=== PATIENT | female | born 1985 | race Hispanic/Latino ===

== ENCOUNTER 2018-12-10 06:44 | Emergency (ER) | payer BC ==
[~2018-12-10] VITALS: Ht 152.4 cm; Wt 87.5 kg
--- OUTSIDE RECORDS SUMMARY | 2018-12-10 06:47 | XMS REPORT ---
[facility] Phone Unavailable Care Team Providers Care Architecture Consultant Name Role Phone COURTNEY GARCIA Unavailable Unavailable Problems This patient has no known problems. Allergies, Adverse Reactions, Alerts This patient has no known allergies or adverse reactions. Medications This patient has no known medications. Encounters Start Date/Time End Date/Time Encounter Type Admission Type Attending [facility] Facility Care Department Encounter ID 2017-05-14 06:35:27 2017-05-14 06:35:27 Outpatient [facility] [id number] 2017-05-14 00:00:00 2017-05-14 00:00:00 Outpatient [facility] [id number] 2017-05-08 09:24:35 2017-05-08 09:24:35 Outpatient [facility] [id number] 2017-05-08 00:00:00 2017-05-08 00:00:00 Outpatient [facility] [id number] 2017-04-25 00:00:00 2017-04-25 00:00:00 Outpatient [facility] [id number] 2017-04-09 08:56:40 2017-04-09 08:56:40 Outpatient [facility] [id number] 2017-04-08 00:00:00 2017-04-08 00:00:00 Outpatient [facility] [id number] 2017-01-17 14:13:21 2017-01-17 14:13:21 Outpatient [facility] [id number] 2017-01-07 12:28:03 2017-01-07 12:28:03 Outpatient [facility] [id number] 2017-01-07 00:00:00 2017-01-07 00:00:00 Outpatient [facility] [id number] 2016-12-17 09:40:00 2016-12-17 09:40:00 Outpatient [facility] [id number] 2016-12-17 00:00:00 2016-12-17 00:00:00 Outpatient [facility] [id number] 2016-12-13 14:14:05 2016-12-13 14:14:05 Outpatient [facility] [id number] 2016-12-13 13:25:25 2016-12-13 13:25:25 Outpatient [facility] [id number] 2016-12-13 00:00:00 2016-12-13 00:00:00 Outpatient [facility] [id number] 2016-12-03 17:00:18 2016-12-03 17:00:18 Outpatient [facility] [id number] 2016-12-03 08:57:22 2016-12-03 08:57:22 Outpatient [facility] [id number] 2016-11-27 09:53:15 2016-11-27 09:53:15 Outpatient [facility] [id number] 2016-11-21 08:14:41 2016-11-21 08:14:41 Outpatient [facility] [id number] 2016-11-20 12:50:29 2016-11-20 12:50:29 Outpatient [facility] [id number] 2016-11-20 12:38:41 2016-11-20 12:38:41 Outpatient [facility] [id number] 2016-11-20 00:00:00 2016-11-20 00:00:00 Outpatient [facility] [id number] 2016-11-07 00:00:00 2016-11-07 00:00:00 Outpatient [facility] [id number] 2016-11-06 00:00:00 2016-11-06 00:00:00 Outpatient [facility] [id number] 2016-10-31 00:00:00 2016-10-31 00:00:00 Outpatient [facility] [id number] 2016-10-24 10:43:09 2016-10-24 10:43:09 Outpatient [facility] [id number] 2016-10-19 00:00:00 2016-10-19 00:00:00 Outpatient [facility] [id number] 2016-10-11 15:20:56 2016-10-11 15:20:56 Outpatient [facility] [id number] 2016-10-11 14:32:42 2016-10-11 14:32:42 Outpatient [facility] [id number] 2016-09-20 00:00:00 2016-09-20 00:00:00 Outpatient [facility] [id number] 2016-08-30 00:00:00 2016-08-30 00:00:00 Outpatient [facility] [id number] Results Test Description Test Time Test Comments Text Results Atomic Results Result Comments TISSUE EXAM 2018-04-01 09:42:00 Surgical Pathology Report Case: [id number] Authorizing Provider: Chucho Garcia, Collected: 03/27/2018 1236 Ordering Location: [facility] Received: 03/27/2018 1420 SERVICES Pathologist: Ada Ray MD Specimens: A) - Duodenum, biopsy r/o celiac disease B) - Biopsy, Gastric, random gastric R/O H. Pylori A. SMALL BOWEL, DUODENUM, BIOPSIES: - PEPTIC DUODENITIS B. STOMACH, BIOPSIES: - CHRONIC INACTIVE GASTRITIS Signing Pathologist Direct Phone Line: [phone] signed by Ada Rashid MD on 04/01/2018 at 9:42 [id number] deficiency anemia, rule out H. Pylori, rule out celiac disease A. Duodenum biopsy; B. Random gastric biopsyThe specimen is received in two containers of formalin both labeled with the patient's information. Part A labeled "duodenum biopsy" consists of five fragments of uribe tissue ranging from 0.1 to 0.3 cm, submitted A1. Part B labeled "random gastric biopsy" consists of three fragments of uribe tissue measuring 0.1 to 0.6 cm, submitted B1. CG/pl A. The duodenal biopsies have duodenal mucosa with increased chronic inflammatory cells in the lamina propria and Wally gland hyperplasia. Focally foveolar metaplasia in a lymphoid follicle in the lamina propria is seen. Features diagnostic of celiac disease are not identified. No parasite, dysplasia or malignancy is identified.The interpretation of this case included the use of immunohistochemistry or special stains. Immunohistochemistry technical testing was performed at [facility], Pathology Laboratory where it was developed and its performance characteristics were determined. It has not been cleared or approved by the U.S. Food and Drug Administration. The FDA has determined that such clear ance or approval is not necessary. The test is used for clinical purposes. It should not be regarded as investigational or for research. This laboratory is certified under the Clinical Laboratory Improvement Amendments of 1988 (CLIA-88) as qualified to perform high complexity clinical laboratory testing.
[2018-12-10] MEDS ORDERED: PREDNISONE 20 MG TAB PO ONE (07:00)
[2018-12-10] MEDS ORDERED: HYDROXYZINE HCL 25 MG TAB PO PRN (07:15)
--- NOTE | 2018-12-10 07:42 | NUR ---
PATIENT C/O EPIGASTRIC "BURNING" AND NAUSEA. DR MCNEAL IN TRIAGE ROOM FOR RE-EVAL. GI COCKTAIL AND ODT ZOFRAN ORDERED. NO SIGNS OF ACUTE DISTRESS NOTED AT THIS TIME.
[2018-12-10] MEDS ORDERED: LIDOCAINE VISC 2% SOLN 15 ML UDC ONE (07:45)
[2018-12-10] MEDS ORDERED: DONNATAL/LIDOCAINE/MAALOX 30 ML SUSP PO SCH (07:45)
[2018-12-10] MEDS ORDERED: ONDANSETRON HCL 4 MG ORAL DISINTEGRATING TAB PO ONE (07:45)
[2018-12-10] MEDS ORDERED: MAGNESIUM/ALUMINUM/SIMETHICONE 30 ML UDC ONE (07:46)
[2018-12-10] MEDS ORDERED: BELLADONNA ALK/PHENOBARBITAL 5 ML UDC ONE (07:46)
--- NOTE | 2018-12-10 07:59 | NUR ---
PATIENT REPORTS IMPROVEMENT AFTER GI COCKTAIL, "I DONT FEEL IT NOW". DR MCNEAL IN TRIAGE ROOM FOR RE-EVAL AND DISCUSSING THE CURRENT PLAN OF CARE WITH PATIENT,VERBALIZED UNDERSTANDING.
[2018-12-10] MEDS ORDERED: FAMOTIDINE 20 MG TAB PO ONE (08:00)
[2018-12-10] MEDS ORDERED: DONNATAL/LIDOCAINE/MAALOX 30 ML SUSP PO ONE (08:00)
[2018-12-10 08:42] VITALS: BP 129/71
== END 2018-12-10 08:43 | disposition home or self-care (01) ==
LOC: ER 06:44
DX: R10.13 Epigastric pain (principal); K29.50 Unspecified chronic gastritis without bleeding
CPT/HCPCS: 99283; J3410; J7512; Q0162

== ENCOUNTER 2020-03-12 11:11 | Emergency (ER) | payer BC ==
[~2020-03-12] VITALS: Ht 152.4 cm; Wt 87.5 kg
[2020-03-12] MEDS ORDERED: TYLENOL # 31 EA PO (11:29)
[2020-03-12] MEDS ORDERED: ZOFRAN4 MG SL (11:29)
[2020-03-12] MEDS ORDERED: AZITHROMYCIN250 MG PO (11:42)
== END 2020-03-12 11:44 | disposition home or self-care (01) ==
LOC: ER 11:44
DX: U07.1 COVID-19 (principal); R50.9 Fever, unspecified; R53.81 Other malaise; D64.9 Anemia, unspecified; K21.9 Gastro-esophageal reflux disease without esophagitis
CPT/HCPCS: 99283

== ENCOUNTER 2020-03-16 18:41 | Emergency (ER) | payer BC ==
[~2020-03-16] VITALS: Ht 154.9 cm; Wt 92.1 kg
[~2020-03-16 18:41] MED LIST: AZITHROMYCIN250 MG PO; TYLENOL # 31 EA PO; ZOFRAN4 MG SL
[2020-03-16 21:53] VITALS: BP 112/75
== END 2020-03-16 21:40 | disposition home or self-care (01) ==
LOC: ER 18:51
DX: R07.81 Pleurodynia (principal); U07.1 COVID-19; Z91.012 Allergy to eggs; Z91.018 Allergy to other foods; Z91.010 Allergy to peanuts
CPT/HCPCS: 71045; 99283

== ENCOUNTER 2021-08-11 16:38 | Emergency (ER) | payer BC ==
[~2021-08-11] VITALS: Ht 154.9 cm; Wt 92.1 kg
[2021-08-11 17:12] LABS: BASOPHILS # (AUTO) 0.1 (0.0-0.1); BASOPHILS % 0.6 % (0.0-1.0); EOSINOPHILS # (AUTO) 0.3 (0.0-0.4); EOSINOPHILS % 2.8 % (0.0-6.0); HEMATOCRIT 35.4 % (34.2-44.1); HEMOGLOBIN 10.5 g/dL (12.0-16.0); LYMPHOCYTES # (AUTO) 3.3 (1.0-3.2); LYMPHOCYTES % 33.1 % (18.0-39.1); MEAN CORPUSCULAR HEMOGLOBIN 22.8 pg (28-32); MEAN CORPUSCULAR HGB CONC 29.7 g/dL (31-35); MONOCYTES # (AUTO) 0.7 (0.2-0.8); MONOCYTES % 6.8 % (4.4-11.3); NEUTROPHILS # (AUTO) 5.7 (2.1-6.9); NEUTROPHILS % 56.4 % (38.7-80.0); PLATELET COUNT 476 x10e3/uL (140-360); RED CELL DISTRIBUTION WIDTH 16.4 % (11.7-14.4)
[2021-08-11] MEDS ORDERED: KETOROLAC TROMETHAMINE 30 MG/ML VIAL IV STA (17:21)
[2021-08-11 17:32] LABS: ANION GAP 14.7 mmol/L (8-16); CALCIUM 9.2 mg/dL (8.4-10.2); CREATININE, SERUM 0.77 mg/dL (0.57-1.11); LIPASE 26 U/L (8-78); POTASSIUM 3.7 mmol/L (3.5-5.1)
[2021-08-11] MEDS ORDERED: ONDANSETRON HCL INJ 2MG/ML 2ML 2 MG/ML VIAL IV STA (17:32)
[2021-08-11 17:36] LABS: CLARITY,URINE SL CLOUDY (CLEAR); COLOR,URINE YELLOW (YELLOW)
[2021-08-11 17:37] LABS: BACTERIA,URINE FEW /HPF; EPITHELIAL CELLS,URINE FEW /LPF; KETONES,URINE NEGATIVE (NEGATIVE); LEUKOCYTE ESTERASE ,URINE TRACE (NEGATIVE); NITRITE,URINE NEGATIVE (NEGATIVE); PROTEIN,URINE DIPSTICK NEGATIVE (NEGATIVE); RBC,URINE 0-5 /HPF (0-5); URINE UROBILINOGEN 0.2 mg/dL (0.2 - 1); WBC,URINE (MAN) 0-5 /HPF (0-5)
[2021-08-11] MEDS ORDERED: SODIUM CHLORIDE 0.9% 1000ML 1,000 ML IV ONE (17:45)
[2021-08-11 19:46] LABS: CREATINE KINASE 54 IU/L (29-168)
[2021-08-11 20:26] VITALS: BP 115/74
[2021-08-11] MEDS ORDERED: IOPAMIDOL 370 MG/ML 100 ML INFUS..BTL INJ ONE (22:04)
== END 2021-08-11 20:30 | disposition home or self-care (01) ==
LOC: ER 16:45
DX: R10.32 Left lower quadrant pain (principal); D25.9 Leiomyoma of uterus, unspecified; D64.9 Anemia, unspecified; K21.9 Gastro-esophageal reflux disease without esophagitis; R94.31 Abnormal electrocardiogram [ECG] [EKG]
CPT/HCPCS: 36415; 74177; 80053; 81001; 82550; 82553; 83690; 84484; 84702; 85025; 93005; 99284; C9113; J1885; J2405; J7030; Q9967